=== PATIENT | male | born 1935 | race Caucasian/White ===

== ENCOUNTER 2019-08-14 09:58 | Emergency (ER) | payer OTHER, MEDICAID ==
[~2019-08-14] VITALS: Ht 175.3 cm; Wt 81.6 kg
--- NOTE | 2019-08-14 10:15 | PHYS DOC ---
Past Medical History Past Medical History: Arthritis, CVA, Dementia, Hypertension Past Medical History Unable to assess secondary to dementia Past Surgical History Unable to assess secondary to dementia Additional Information: nonsmoker Alcohol Use: None Drug Use: None Social History Unable to assess secondary to dementia Adult General Chief Complaint Chief Complaint: KNEE INJURY HPI HPI Patient is an 84-year-old male with a past medical history of CVA, dementia, arthritis is presenting to the emergency department via EMS status post fall on transfer. Fall was witnessed. Patient is alert and oriented and denies trauma to the head or neck and loss of consciousness. Patient states that his worst pain is in the right knee but is also complaining of left knee and bilateral hip pain. Patient denies any fever, chills, nausea, vomiting, chest pain, shortness of breath, dysuria, abdominal pain, constipation, or diarrhea. Patient denies any other trauma. Review of Systems Review of Systems Constitutional: Denies fever or chills Eyes: Denies redness or eye pain HENT: Denies nasal congestion or sore throat Respiratory: Denies cough or shortness of breath Cardiovascular: Denies chest pain or palpitations GI: Denies abdominal pain, nausea, or vomiting : Denies dysuria or hematuria Musculoskeletal: Denies back pain, reports joint pain Integument: Denies rash or skin lesions; reports contusion Neurologic: Denies headache, focal weakness or sensory changes Complete systems were reviewed and found to be within normal limits, except as documented in this note. Allergies Allergies Allergies Coded Allergies Type Severity Reaction Last Updated Verified No Known Drug Allergies 08/14/19 No Physical Exam Physical Exam Constitutional: Well developed, well nourished, no acute distress, non-toxic appearance HENT: Normocephalic, atraumatic, oropharynx moist Eyes: PERRL, EOMI, conjunctiva normal, no discharge Neck: Normal range of motion, no tenderness, supple Cardiovascular: Heart rate normal, regular rhythm Lungs & Thorax: Bilateral breath sounds clear to auscultation, no wheezing Abdomen: Soft, no tenderness Skin: Warm, dry, no erythema, no rash Back: No tenderness, no CVA tenderness Extremities: No tenderness, ROM intact, no edema, erythema to the anterior aspect of bilateral knees, tenderness most over the right knee, no joint instability, no pelvic instability, reports tenderness over the bilateral hips, denies midline tenderness of the cervical spine Neurologic: Alert and oriented X 3, normal motor function, normal sensory function, no focal deficits noted Psychologic: Affect normal, judgement normal, mood normal Current Patient Data Vital Signs Vital Signs Date Time Temp Pulse Resp B/P (MAP) Pulse Ox O2 Delivery O2 Flow Rate FiO2 08/14/19 11:00 86 16 119/62 (81) 98 Room Air 08/14/19 10:00 98.1 98.1 EKG EKG [] Radiology/Procedures Radiology/Procedures PROCEDURE: HIP BILATERAL WITH PELVIS 2V, KNEES BILATERAL 3V Examination: 3 views of the bilateral knees, 2 views of the bilateral hips HISTORY: History of knee pain, bilateral hip pain, fall COMPARISON: None available. FINDINGS: The bilateral femoral heads within the acetabula. Moderate joint space loss identified in the bilateral hip joint likely degenerative changes. There is severe joint space loss identified in the medial compartment of the bilateral knees. Moderate joint space loss identified in the lateral and patellofemoral compartments of the bilateral knees. IMPRESSION: 1. Tricompartmental degenerative changes bilateral knees, most in the medial compartments. 2. Moderate degenerative changes bilateral hip joints. Electronically signed by: Dani Peters MD (08/14/2019 10:58 AM) [facility] Course & Med Decision Making Course & Med Decision Making Pertinent Imaging studies reviewed. (See chart for details) Patient is an 84-year-old male with a past medical history of CVA, dementia, arthritis that is presenting to the emergency department via EMS status post fall on transfer from walker to chair which was witnessed. No LOC or head trauma. Patient was seen and examined at bedside. Physical exam was significant for tenderness to the bilateral hips and bilateral knees, erythema to the bilateral knees, no pelvic instability, denies midline tenderness of the cervical spine. X-rays of the bilateral hips and bilateral knees ordered. X-rays negative for acute pathology. Patient will be discharged home with [place] wrap on both knees. Patient stable for discharge with outpatient follow-up with PCP. Discussed findings and plan with patient, who acknowledges understanding and agreement. Dragon Disclaimer Dragon Disclaimer This electronic medical record was generated, in whole or in part, using a voice recognition dictation system. Splinting Splinting : Location: Bilateral knees Pre-Made Type: MILTON bandages Pre-Proc Neuro Vasc Exam: normal Post-Proc Neuro Vasc Exam: normal, unchanged from pre-exam Departure Departure Impression: Primary Impression: Knee pain, bilateral Additional Impressions: Fall Osteoarthritis Disposition: 01 HOME, SELF-CARE Condition: STABLE Referrals: AMADO NELSON (PCP) OLVIN PADRON MD Patient Instructions: Fall Prevention and Home Safety, [id number], Knee Pain, [id number], Osteoarthritis Scripts Naproxen (NAPROXEN) 375 Mg Tablet 375 MG PO TID PRN PRN for PAIN, #30 TAB Prov: ALLA WEI DO 08/14/19 Problem Qualifiers Primary Impression: Knee pain, bilateral Chronicity: acute Qualified Codes: M25.561 - Pain in right knee; M25.562 - Pain in left knee Additional Impressions: Fall Encounter type: initial encounter Qualified Codes: W19.XXXA - Unspecified fall, initial encounter Osteoarthritis Osteoarthritis location: knee Osteoarthritis type: unspecified Laterality: bilateral Qualified Codes: M17.0 - Bilateral primary osteoarthritis of knee ALLA WEI DO Aug 14, 2019 10:15
[2019-08-14] MEDS ORDERED: NAPR-695 PO (10:58)
[2019-08-14 11:00] VITALS: BP 119/62
--- NOTE | 2019-08-14 11:00 | RAD ---
Examination: 3 views of the bilateral knees, 2 views of the bilateral hips HISTORY: History of knee pain, bilateral hip pain, fall COMPARISON: None available. FINDINGS: The bilateral femoral heads within the acetabula. Moderate joint space loss identified in the bilateral hip joint likely degenerative changes. There is severe joint space loss identified in the medial compartment of the bilateral knees. Moderate joint space loss identified in the lateral and patellofemoral compartments of the bilateral knees. IMPRESSION: 1. Tricompartmental degenerative changes bilateral knees, most in the medial compartments. 2. Moderate degenerative changes bilateral hip joints. Electronically signed by: Dani Peters MD (08/14/2019 10:58 AM) [facility]
== END 2019-08-14 12:12 | disposition home or self-care (01) ==
LOC: ER 09:58
DX: M25.561 Pain in right knee (principal); G89.11 Acute pain due to trauma; M25.562 Pain in left knee; M25.551 Pain in right hip; M25.552 Pain in left hip; I10 Essential (primary) hypertension; Z86.73 Personal history of transient ischemic attack (TIA), and cerebral infarction without residual deficits; F03.90 Unspecified dementia, unspecified severity, without behavioral disturbance, psychotic disturbance, mood disturbance, and anxiety; W18.39XA Other fall on same level, initial encounter; Y93.89 Activity, other specified; Y92.89 Other specified places as the place of occurrence of the external cause; Y99.8 Other external cause status
CPT/HCPCS: 73521; 73562; 99284

== ENCOUNTER 2020-06-08 22:02 | Emergency (ER) | payer OTHER, MEDICAID ==
[~2020-06-08] VITALS: Ht 182.9 cm; Wt 81.8 kg
[~2020-06-08 22:02] MED LIST: NAPR-695 PO
--- NOTE | 2020-06-08 22:43 | ED.ADGEN ---
Past Medical History Past Medical History: Arthritis, CVA, Dementia, Hypertension Past Surgical History: No Surgical History Additional Past Surgical Histo: unknown sx hx Smoking Status: Unknown if ever smoked Alcohol Use: None Drug Use: None General Adult EDM: Chief Complaint: MECHANICAL FALL HPI: HPI: Patient is a 84 year old male, brought to the emergency room by EMS with reports of unwitnessed fall with injury to the right scalp. EMS reports that the senior care staff stated the patient is more combative than usual. The patient denies any pain to his extremities x4, abdomen, or chest. HPI is limited due to patient history of dementia. Patient is alert to person and situation only. Review of Systems: Review of Systems: Complete ROS is negative unless otherwise noted in HPI. Allergies: Allergies: Allergies Coded Allergies Type Severity Reaction Last Updated Verified No Known Drug Allergies 08/14/19 No Physical Exam: PE: See Above Constitutional: Well developed, well nourished, no acute distress, non-toxic appearance. [] HENT: Normocephalic, bilateral external ears normal, oropharynx moist, no oral exudates, nose normal; dried blood noted to the crown of patient's head [] Eyes: PERRLA, EOMI, conjunctiva normal, no discharge. [] Neck: Normal range of motion, no tenderness, supple, no stridor. [] Cardiovascular:Heart rate regular rhythm, no murmur [] Lungs & Thorax: Respirations even and unlabored, no retractions, no respiratory distress Abdomen:soft, no tenderness Skin: Warm, dry; skin tear/abrasion noted to right side of the crown of patient's scalp, no visible foreign body, no active bleeding Extremities: No bony tenderness, no obvious deformities, no cyanosis, no clubbing, ROM intact, 1+ edema BLE Neurologic: Alert and oriented X2, normal motor function, normal sensory function, no focal deficits noted. [] Psychologic: Affect normal, judgement normal, mood normal. [] EKG: EKG: [] Heart Score: Risk Factors: Risk Factors: DM, Current or recent (<one month) smoker, HTN, HLP, family his tory of CAD, obesity. Risk Scores: Score 0 - 3: 2.5% MACE over next 6 weeks - Discharge Home Score 4 - 6: 20.3% MACE over next 6 weeks - Admit for Clinical Observation Score 7 - 10: 72.7% MACE over next 6 weeks - Early Invasive Strategies Radiology/Procedures: Radiology/Procedures: PROCEDURE: CT HEAD AND CERVICAL SPINE WO Exam: CT head and cervical spine without contrast INDICATION: Unwitnessed fall with right-sided scalp abrasion/laceration TECHNIQUE: Sequential axial images through the head were obtained without the administration of IV contrast. Comparisons: None FINDINGS: No focal parenchymal lesion or hemorrhage is identified. There is no midline shift or sulcal effacement. Hypodensity centered at the right superior frontal lobe and right anterior frontal lobe. No acute vascular territory infarction is identified. Pagan-white distinction is preserved. The ventricular system is within normal limits without compression hydrocephalus. The basal cisterns are well maintained. There is a extra cranial soft tissue scalp contusion/hematoma overlying the right parietal region. The visualized portions of the paranasal sinuses and mastoid air cells are well-pneumatized. No acute fractures. IMPRESSION: 1. Extra cranial soft tissue scalp contusion overlying the right parietal region without underlying osseous abnormality or acute traumatic intracranial abnormality. 2. Asymmetric hypodensity in the white matter of the left frontal lobe. This is likely chronic ischemic change, however further evaluation with MRI of the brain with contrast is recommended to exclude underlying lesion.[] [id number]- Spoke with radiologist Rashid Bourgeois and advised that there is no comment of the patient's C-spine CT. Per Dr. Bourgeois there is no fracture of the Cervical spine. He will correct the report. Course & Med Decision Making: Course & Med Decision Making Pertinent Labs and Imaging studies reviewed. (See chart for details) [] Mj Disclaimer: Mj Disclaimer: This electronic medical record was generated, in whole or in part, using a voice recognition dictation system. Departure Departure Impression: Primary Impression: Abrasion of scalp, initial encounter Additional Impressions: Unwitnessed fall Need for Tdap vaccination Disposition: 01 DC HOME SELF CARE/HOMELESS Condition: STABLE Referrals: AMADO NELSON (PCP) Patient Instructions: Abrasions, Facial or Scalp Contusion, [id number], Fall Prevention in Hospitals, VIS, Tetanus, Diphtheria (Td); Tetanus, Diphtheria, Pertussis (Tdap) - [facility] Additional Instructions: Clean the abrasion and apply antibiotic ointment and clean bandage twice daily. May take Tylenol as needed for pain. Follow-up with primary care doctor in 1 to [address] of the head and neck were negative for any acute findings today. Problem Qualifiers EMILE QUINTERO APRN Jun 08, 2020 22:43
--- NOTE | 2020-06-08 22:55 | RAD ---
Exam: CT head and cervical spine without contrast INDICATION: Unwitnessed fall with right-sided scalp abrasion/laceration TECHNIQUE: Sequential axial images through the head were obtained without the administration of IV contrast. Comparisons: None FINDINGS: No focal parenchymal lesion or hemorrhage is identified. There is no midline shift or sulcal effacement. Hypodensity centered at the right superior frontal lobe and right anterior frontal lobe. No acute vascular territory infarction is identified. Pagan-white distinction is preserved. The ventricular system is within normal limits without compression hydrocephalus. The basal cisterns are well maintained. There is a extra cranial soft tissue scalp contusion/hematoma overlying the right parietal region. The visualized portions of the paranasal sinuses and mastoid air cells are well-pneumatized. No acute fractures. IMPRESSION: 1. Extra cranial soft tissue scalp contusion overlying the right parietal region without underlying osseous abnormality or acute traumatic intracranial abnormality. 2. Asymmetric hypodensity in the white matter of the left frontal lobe. This is likely chronic ischemic change, however further evaluation with MRI of the brain with contrast is recommended to exclude underlying lesion. Exposure: One or more of the following in the visualized dose reduction techniques were utilized for this examination: 1. Automated exposure control 2. Adjustment of the MA and/or KV according to patient size Use of iterative of reconstructive technique Electronically signed by: Martita Cole MD (06/08/2020 10:52 PM) [facility]
[2020-06-08 23:30] VITALS: BP 132/73
[2020-06-08] MEDS ORDERED: NEOMY/BACITR/POLYMYXIN OINT PACKET. TP ONE (23:30)
[2020-06-08] MEDS ORDERED: DIPH,PERTUSS(ACELL),TET VAC/PF 0.5 ML SYRINGE. VAX IM ONE (23:30)
== END 2020-06-08 23:40 | disposition home or self-care (01) ==
LOC: ER 22:02
DX: S00.03XA Contusion of scalp, initial encounter (principal); M19.90 Unspecified osteoarthritis, unspecified site; I10 Essential (primary) hypertension; F03.90 Unspecified dementia, unspecified severity, without behavioral disturbance, psychotic disturbance, mood disturbance, and anxiety; Z86.73 Personal history of transient ischemic attack (TIA), and cerebral infarction without residual deficits; Z98.890 Other specified postprocedural states; W18.39XA Other fall on same level, initial encounter; Y93.89 Activity, other specified; Y92.89 Other specified places as the place of occurrence of the external cause; Y99.8 Other external cause status
CPT/HCPCS: 70450; 72125; 90471; 90715; 99285